=== PATIENT | male | born 1945 | race Caucasian/White ===

== ENCOUNTER → 2017-11-19 14:15 | Outpatient (CLI) | payer MEDICARE, SELFPAY ==
[2017-11-19 16:30] LABS: Hemoglobin A1c 6.6 % (4.2-6.3)
== END ==
PROVIDERS: Family Provider Family Medicine; PCP Family Medicine; Visit Provider Family Medicine
DX: E11.9 Type 2 diabetes mellitus without complications (principal)
CPT/HCPCS: 36415; 83036

== ENCOUNTER → 2018-02-10 13:54 | Outpatient (CLI) | payer MEDICARE, SELFPAY ==
[2018-02-10 15:01] LABS: Cholesterol 99 mg/dL (200); High Density Lipoprotein 57 mg/dL; Triglycerides 93 mg/dL; Very Low Density Lipoprotein 19 mg/dL (5-40)
[2018-02-10 15:03] LABS: Hemoglobin A1c 6.5 % (4.2-6.3)
== END ==
PROVIDERS: Family Provider Family Medicine; PCP Family Medicine; Visit Provider Family Medicine
DX: I51.9 Heart disease, unspecified (principal); E11.9 Type 2 diabetes mellitus without complications
CPT/HCPCS: 36415; 80061; 83036

== ENCOUNTER → 2018-05-14 13:58 | Outpatient (CLI) | payer MEDICARE, SELFPAY ==
[2018-05-14 16:37] LABS: Hemoglobin A1c 6.3 % (4.2-6.3)
== END ==
PROVIDERS: Family Provider Family Medicine; PCP Family Medicine; Referring Provider Family Medicine; Visit Provider Family Medicine
DX: E11.9 Type 2 diabetes mellitus without complications (principal)
CPT/HCPCS: 36415; 83036

== ENCOUNTER → 2018-10-08 05:58 | Outpatient (CLI) | payer MEDICARE, SELFPAY ==
[2018-09-24 10:12] VITALS: BMI 28.4
--- NOTE | 2018-10-08 06:04 | ECHOCS_ITS ---
Reason For Study: MURMUR Procedure This was a 2D Doppler, Color Flow transthoracic echocardiogram. Contrast injection was performed. Exam performed in department. Left Ventricle Normal LV size. Mild concentric left ventricular hypertrophy. Left ventricular systolic function is normal. The estimated ejection fraction is 55 %. Stage 2 diastolic dysfunction. Mid-Inferior: Hypokinetic. Right Ventricle Normal RV size. Normal systolic function. Atria The left atrium is moderately enlarged. Normal right atrium. Mitral Valve Normal mitral valve. Tricuspid Valve Normal tricuspid valve. Mild (1+) tricuspid valve insufficiency. Pulmonary artery systolic pressure is 44 mmHg. Aortic Valve Trisinus/trileaflet aortic valve. Moderate focal aortic valve calcification. Peak aortic valve gradient 33 mmHg. Mean aortic valve gradient 19 mmHg. Calculated aortic valve area (continuity equation) is 1.5 cm2. Pulmonic Valve Normal pulmonic valve. Great Vessels Normal aortic root. The pulmonary artery is normal size. Pericardium/Pleural No pericardial effusion. Medication Diluted definity 2.5ml given slow IV push to enhance endocardial definition. MMode/2D Measurements & Calculations LVIDd: 4.2 cm IVSd: 1.2 cm LVOT diam: 2.2 cm LVIDs: 3.0 cm LVPWd: 1.2 cm RVDd: 3.7 cm FS: 28.0 % LVOT area: 3.7 cm2 Ao root diam: 2.9 cm LAV(MOD-bp): 102.0 ml LA A4 area: 27.5 cm2 LAV(MOD-bp) Indexed: 50.3 ml/m2 LAV(MOD-sp2): 99.8 ml LAV(MOD-sp4): 102.6 ml LA dimension(2D): 4.5 cm RA A4 area: 19.2 cm2 Doppler Measurements & Calculations MV E max shamar: 106.1 cm/sec Lat Peak E' Shamar: 10.5 cm/sec Med Peak E' Shamar: 6.8 cm/sec MV A max shamar: 89.7 cm/sec E/E' lat: 10.1 E/E' med: 15.7 MV E/A: 1.2 Ao V2 max: 288.0 cm/sec AI max shamar: 288.8 cm/sec LV V1 max: 117.6 cm/sec Ao max P.2 mmHg AI max P.4 mmHg LV V1 max P.5 mmHg Ao V2 mean: 210.3 cm/sec AI dec slope: 185.3 cm/sec2 LV V1 mean P.5 mmHg Ao mean P.4 mmHg AI P1/2t: 456.7 msec LV V1 mean: 90.8 cm/sec Ao V2 VTI: 64.4 cm LV V1 VTI: 27.1 cm RENALDO(I,D): 1.5 cm2 RENALDO(V,D): 1.5 cm2 SV(LVOT): 99.0 ml PA V2 max: 130.0 cm/sec TR max shamar: 316.2 cm/sec TR max P.0 mmHg Interpretation Summary Normal LV size. Mild concentric left ventricular hypertrophy. Left ventricular systolic function is normal. The estimated ejection fraction is 55 %. Stage 2 diastolic dysfunction. Mean aortic valve gradient 19 mmHg. Calculated aortic valve area (continuity equation) is 1.5 cm2. Contrast injection was performed. Ordering Physician: Walt Baker Referring Physician: Estrada Martinez Performed By: Lorna Londono RDCS, RVT
--- NOTE | 2018-10-08 06:04 | CDU_ITS ---
Reason For Study: Carotid bruit Rt. Velocities/BP Lt. Velocities/BP Prox CCA 85.0/12.3 cm/sec. Prox CCA 117.0/14.7 cm/sec. Mid CCA 90.3/14.1 cm/sec. Mid CCA 97.3/14.1 cm/sec. Dist CCA 66.3/12.9 cm/sec. Dist CCA 69.8/10.6 cm/sec. Prox ICA 56.3/18.2 cm/sec. Prox ICA 101.0/21.1 cm/sec. Mid ICA 64.5/18.8 cm/sec. Mid ICA 77.4/19.4 cm/sec. Dist ICA 68.6/20.5 cm/sec. Dist ICA 65.3/16.0 cm/sec. Rt. ICA/CCA = .76. Lt. ICA/CCA = 1.0. Prox ECA 85.6/9.4 cm/sec. Prox ECA 123.0/10.2 cm/sec. Rt. Vert. 39.9/11.1 cm/sec. Lt. Vert. 45.9/11.1 cm/sec. Right Extracranial There is intimal thickening but no significant atherosclerotic plaque noted in the right common carotid artery. There is homogeneous, smooth atherosclerotic plaque noted in the right internal carotid artery. There is no significant atherosclerotic plaque noted in the right external carotid artery. Antegrade flow is noted in the right vertebral artery. Left Extracranial There is heterogeneous, irregular atherosclerotic plaque noted in the left common carotid artery. There is heterogeneous, irregular atherosclerotic plaque noted in the left internal carotid artery. There is heterogeneous, irregular atherosclerotic plaque noted in the left external carotid artery. Antegrade flow is noted in the left vertebral artery. Procedure Carotid Duplex 32201. Exam performed in department. Interpretation Summary Mild (<50%) stenosis right extracranial internal carotid. Mild (<50%) stenosis left extracranial internal carotid. Flow within the vertebral arteries is antegrade bilaterally. Ordering Physician: Walt Baker Referring Physician: Walt Baker Performed By: Katerine Montes RVT
--- NOTE | 2018-10-08 08:32 | RAD_ITS ---
STUDY: X-RAY CHEST REASON FOR EXAM: Male, 73 years old. Abnormal stress test today. TECHNIQUE: PA and lateral views. COMPARISON: None. FINDINGS: Median sternotomy has from prior CABG procedure. The lungs are clear and expanded. There is no demonstrated pleural abnormality. Normal size heart. Normal mediastinum and ernestine. Normal visualized pulmonary arteries. Normal visualized aortic arch and descending thoracic aorta. Diffuse idiopathic skeletal hyperostosis along the thoracic spine. Anterior and lateral marginal spurring along the thoracic spine. Normal visualized ribs, clavicles, and shoulders. There is no demonstrated abnormality of the visualized soft tissue structures of the upper abdomen. RAD/Chest PA and Lateral IMPRESSION: Normal x-ray examination of the chest. Electronically Signed: Den Hurd MD at 12:06 EDT , Service support ,
--- NOTE | 2018-10-08 08:56 | STRESSREP ---
Stress Test Report Exercise myocardial perfusion stress test. 73-year-old man with a history of coronary artery disease status post coronary artery bypass surgery. Medications: Aspirin, lisinopril, atorvastatin, metformin, metoprolol, isosorbide. Stress protocol: Resting EKG demonstrates normal sinus rhythm with a rate of 68 bpm no intervals noted resting blood pressure 148/78 mmHg. The patient exercised according to regular Calvin protocol for a total duration of 5 minutes and 22 seconds. The maximum heart rate attained was 142 bpm which was 95% of maximum predicted heart rate the maximum workload was 7 metabolic equivalents. At rest there were nonspecific ST-T wave changes noted with normally the criteria for ischemia. At peak exercise there was approximately 2.[address] depression noted in leads II, III and aVF and 1.[address] depression noted in V4 and V6. The above is suggestive of ischemia. No chest pain was noted shortness of breath was present. The resting blood pressure was 148/78 mmHg with a peak blood pressure 180/88 mmHg. Myocardial perfusion protocol. 10.7 mCi of technetium 99m sestamibi was injected at rest. Patient exercised according to regular Calvin protocol for 5 minutes and 22 seconds. Peak exercise 33.2 mCi of technetium 99m sestamibi was injected stress images were obtained stress and rest images were reconstructed and compared in the short axis vertical long horizontal long axis. Gated images were also obtained Perfusion SPECT analysis Review of the images demonstrate a large defect noted in the mid anterior wall extending to the apex on the stress images with near complete reversibility noted during the resting images. The above is suggestive of a large area of anterior and anterolateral ischemia present. No previous infarct is noted. Gated SPECT analysis: The gated ejection fraction is noted to be 53% with mild antral lateral hypokinesis. Conclusion: Abnormal myocardial perfusion stress test with evidence of anterior and anterolateral ischemia at a moderate workload. Preserved ejection fraction.
[2018-10-08 09:06] LABS: Hematocrit 46.6 % (40-54); Hemoglobin 15.1 g/dl (13.0-16.5); Mean Corp Hgb Conc 32.4 g/gl (32-36); Mean Corpuscular Hgb 31.7 pg (27.0-32.0); Mean Corpuscular Volume 97.7 fL (80-94); Platelet Count 82 K/mm3 (150-450); RBC Distribution Width CV 13.2 % (11.6-14.6); RBC Distribution Width SD 47.1 fl (35.1-43.9); Red Blood Count 4.77 M/mm3 (4.6-6.2); White Blood Count 6.7 K/mm3 (4.4-11.0)
[2018-10-08 09:08] LABS: Scan Indicated on CBC? Y/N NO
[2018-10-08 09:31] LABS: ALB/GLOB Ratio 1.4 RATIO (0.9-2.4); AST(SGOT) 34 U/L (15-37); Alanine Aminotransfer ALT/SGPT 29 U/L (16-61); Albumin, Serum 4.1 g/dL (3.2-5.0); Alkaline Phosphatase 58 U/L (45-117); Anion Gap 7 (5-15); BUN 16 mg/dL (7-18); Calcium,Total 8.8 mg/dL (8.5-10.1); Chloride 107 mmol/L (98-107); EST Glomerular Filtration Rate 78 mL/min (>60); Est Glom Filt Rate - Afr Amer 95 mL/min (>60); Glucose 149 mg/dL (74-106); Potassium 4.4 mmol/L (3.5-5.1); Protein, Total 7.1 g/dL (6.4-8.2); Sodium Level 138 mmol/L (136-145)
== END ==
PROVIDERS: Family Provider Family Medicine; PCP Family Medicine; Referring Provider Internal Medicine Cardiovascular Disease; Visit Provider Internal Medicine Cardiovascular Disease
DX: R09.89 Other specified symptoms and signs involving the circulatory and respiratory systems (principal); I35.1 Nonrheumatic aortic (valve) insufficiency; R06.02 Shortness of breath; R94.39 Abnormal result of other cardiovascular function study
CPT/HCPCS: 36415; 71046; 78452; 80053; 85027; 93017; 93306; 93880; A9500; Q9957; A4216; C8929

== ENCOUNTER 2018-10-09 07:06 | Day surgery (SDC) | payer MEDICARE, SELFPAY ==
[2018-09-24 10:12] VITALS: BMI 28.4
[2018-10-08 13:00] VITALS: BMI 28.4
--- NOTE | 2018-10-09 13:06 | CL.D_ITS ---
Patient Name: JOHN AGUILLON Study Date: 10/09/2018 Performing: Eugene Ayala MD Ht: 68 inches 173 cm : 1945 Wt: 187.6 lbs 85 kg Age: 73 Gender: male BSA: 1.99 PROCEDURE(S) PERFORMED [id number]-XOF/COR/CABG DC11-AO ROOT ANGIO WITH HEART CATH CLINICAL PROFILE AND INDICATIONS Indications: Suspected CAD Heart Failure: None Stress/Imaging Date: 10/08/2018Stress Test with SPECT MPI: Positive High Risk CAD Presentations: No Sxs, no angina. CONCLUSIONS Coronary artery disease involving the [place] vessels which is severe with patent bypass grafts to the right coronary artery, left anterior descending artery, and circumflex artery. The distal left ante rior descending artery has diffuse disease noted. RECOMMENDATIONS Medical therapy DESCRIPTION OF PROCEDURE The patient arrived to the procedure lab. The risks and benefits of the procedure as well as a full d escription of our services here and current unavailability of surgical backup were fully explained to the patient and/or their significant other prior to the catheterization. The Timeout was completed, verifying the correct patient and procedure. The patient's procedural site was prepped and draped in the usual fashion. Local anesthetic was given subcutaneously to right groin region with Lidocaine 2%. Using a modified Seldinger technique, arterial access was obtained via the right femoral artery, a 5 Fr sheath was inserted. Left Coronary Artery selective angiography was performed in multiple views u sing a 5 Fr. JL4 catheter. Right Coronary Artery selective angiography was then performed in multiple views using a 5 Fr. 3DRC (Bernabe) catheter. Right internal mammary artery graft to the RCA selecti ve angiography was performed in multiple views using a 5 Fr. 3DRC (Bernabe) catheter. Left internal mammary artery graft to the LAD selective angiography was performed in multiple views u sing a 5 Fr. 3DRC (Bernabe) catheter. Saphenous Vein graft to the DIAG 1 selective angiography was p erformed in multiple views using a 5 Fr. JR 4 catheter. Ascending (root) aorta selective angiography was then performed in single view using a pigtail catheter. Ascending (root) aorta selective angiogra phy was then performed in single view using a pigtail catheter.Contrast was injected through the farley th and the Right Iliac and Femoral artery were assessed for possible closure device.The arterial farley th was pulled and a Mynx closure device was deployed for hemostasis CORONARY ANGIOGRAPHY DOMINANCE: Right Dominant LEFT HEART ASSESSMENT Left Ventricular Ejection Fraction: by Echo 55 % LEFT MAIN: Severe proximal and distal stenosis LEFT ANTERIOR DECENDING ARTERY: is occluded DISTAL LAD: Diffusely diseased up to 65 % CIRCUMFLEX ARTERY: MID CIRC: is occluded RIGHT CORONARY ARTERY: PROX RCA: is occluded GRAFTS: JENNIFER graft to the Distal RCA is patent CINTRON graft to the Distal LAD is patent Saphenous Vein graft to the CIRC is patent VALVE FINDINGS: Aortic Valve Stenosis - moderate COMPLICATIONS No Complications PROCEDURE MEDICATIONS Versed 1 mg IV Oxygen: 2 L/min via nasal cannula SUMMARY OF HEMODYNAMIC DATA Time AIR REST ECG 07:22:34 AO 107/56 (78) SA 08:55:07 RM AIR REST 09:41:57 Signed By Eugene Ayala MD On 10/09/2018 1:05:45 PM Eugene Ayala MD
== END 2018-10-09 12:40 | disposition home or self-care (01) ==
PROVIDERS: Family Provider Family Medicine; PCP Family Medicine; Referring Provider Internal Medicine Cardiovascular Disease; Visit Provider Internal Medicine Cardiovascular Disease
DX: I25.10 Atherosclerotic heart disease of native coronary artery without angina pectoris (principal); Z95.1 Presence of aortocoronary bypass graft; I35.0 Nonrheumatic aortic (valve) stenosis; I35.1 Nonrheumatic aortic (valve) insufficiency; I34.0 Nonrheumatic mitral (valve) insufficiency; R09.89 Other specified symptoms and signs involving the circulatory and respiratory systems; E78.00 Pure hypercholesterolemia, unspecified; I10 Essential (primary) hypertension; I73.9 Peripheral vascular disease, unspecified; E11.9 Type 2 diabetes mellitus without complications; Z87.891 Personal history of nicotine dependence; Z79.82 Long term (current) use of aspirin; Z79.84 Long term (current) use of oral hypoglycemic drugs; Z79.899 Other long term (current) drug therapy
CPT/HCPCS: 93459; 93567; 99152; 99153; C1760; J7040; C1769; Q9967

== ENCOUNTER → 2019-02-24 | Outpatient (CLI) | payer MEDICARE, SELFPAY ==
[2019-02-24 13:14] VITALS: BMI 27.5
--- NOTE | 2019-02-24 14:20 | LES_PTH ---
PATIENT: JOHN AGUILLON LOC: [facility] U#:[id number] AGE/SX: 74/M ROOM: RE02/24/[address]: Dr. 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 Negative for malignancy. SJ:kinsey 02/26/19 COMMENT Clinical correlation and appropriate follow up are necessary. Complete excision of the lesion is suggested if clinically indicated. Case has been reviewed in consultation with Dr. Portillo who concurs with the above diagnosis. IDC:AM MICROSCOPIC DESCRIPTION Slides are reviewed. GROSS DESCRIPTION Received is one container labeled with the patient's name and not further designated. The specimen consists of a round biopsy of eagle-white skin measuring 0.6 cm in diameter and 0.5 cm in length. The specimen is inked, bisected and submitted entirely in one cassette. / SJ:kinsey 02/25/19 TC:1 CPT: 71852
== END | disposition home or self-care (01) ==
PROVIDERS: Family Provider Family Medicine; PCP Family Medicine; Visit Provider Family Medicine
DX: L85.8 Other specified epidermal thickening (principal)
CPT/HCPCS: 88305

== ENCOUNTER → 2019-03-11 | Outpatient (CLI) | payer MEDICARE, SELFPAY ==
[2019-03-10 11:55] VITALS: BMI 27.8
[2019-03-11 09:28] LABS: AST(SGOT) 18 U/L (15-37); Alanine Aminotransfer ALT/SGPT 22 U/L (16-61); Albumin, Serum 3.7 g/dL (3.2-5.0); Alkaline Phosphatase 49 U/L (45-117); Bilirubin, Direct 0.41 mg/dL (0.00-0.30); Cholesterol 132 mg/dL (200); Globulin 3.1 g/dL (2.2-4.2); High Density Lipoprotein 69 mg/dL; Protein, Total 6.8 g/dL (6.4-8.2); Triglycerides 162 mg/dL; Very Low Density Lipoprotein 32 mg/dL (5-40)
== END | disposition home or self-care (01) ==
LOC: LAB 08:41
PROVIDERS: Family Provider Family Medicine; PCP Family Medicine; Referring Provider Internal Medicine Cardiovascular Disease; Visit Provider Internal Medicine Cardiovascular Disease
DX: E78.00 Pure hypercholesterolemia, unspecified (principal)
CPT/HCPCS: 36415; 80061; 80076

== ENCOUNTER → 2019-08-23 | Outpatient (CLI) | payer MEDICARE, SELFPAY ==
[2019-05-26 13:28] VITALS: BMI 27.8
[2019-08-23 12:57] LABS: ALB/GLOB Ratio 1.2 RATIO (0.9-2.4); AST(SGOT) 20 U/L (15-37); Alanine Aminotransfer ALT/SGPT 29 U/L (16-61); Albumin, Serum 3.8 g/dL (3.2-5.0); Alkaline Phosphatase 44 U/L (45-117); Anion Gap 6 (5-15); BUN 22 mg/dL (7-18); BUN/Creat Ratio 19.5 RATIO (10-20); Calcium,Total 9.1 mg/dL (8.5-10.1); Chloride 109 mmol/L (98-107); Cholesterol 152 mg/dL (200); Creatinine, Serum 1.13 mg/dL (0.70-1.30); EST Glomerular Filtration Rate 68 mL/min (>60); Est Glom Filt Rate - Afr Amer 82 mL/min (>60); Globulin 3.2 g/dL (2.2-4.2); Glucose 166 mg/dL (74-106); High Density Lipoprotein 61 mg/dL; Potassium 4.3 mmol/L (3.5-5.1); Sodium Level 141 mmol/L (136-145); Triglycerides 186 mg/dL; Very Low Density Lipoprotein 37 mg/dL (5-40)
[2019-08-23 13:26] LABS: Microalbumin,Random Urine 8.5 mg/L (NO RANGE EST.); Microalbumin:Creatinine Ratio 4.2 mg/g CRE (<30 mg/g CRE)
== END | disposition home or self-care (01) ==
LOC: BIMLAB 08:05
PROVIDERS: PCP Family Medicine; Referring Provider Family Medicine; Visit Provider Family Medicine
DX: E11.9 Type 2 diabetes mellitus without complications (principal); E78.00 Pure hypercholesterolemia, unspecified
CPT/HCPCS: 36415; 80053; 80061; 82043; 82570

== ENCOUNTER → 2020-05-23 10:56 | Outpatient (CLI) | payer MEDICARE, SELFPAY ==
[2020-02-09 08:59] VITALS: BMI 28.7
== END ==
PROVIDERS: PCP Family Medicine; Visit Provider Nurse Practitioner Family
DX: Z20.828 Contact with and (suspected) exposure to other viral communicable diseases (principal)
CPT/HCPCS: 87635; C9803; U0003

== ENCOUNTER → 2020-07-18 09:23 | Outpatient (CLI) | payer MEDICARE, SELFPAY ==
[2020-07-07 14:54] VITALS: BMI 26.5
--- NOTE | 2020-07-18 09:25 | ECHOD_ITS ---
Reason For Study: MURMUR Procedure This was a 2D Doppler, Color Flow transthoracic echocardiogram. The study was technically difficult. Contrast injection was performed. Exam performed in department. Left Ventricle Normal LV size. Mild concentric left ventricular hypertrophy. Left ventricular systolic function is normal. The estimated ejection fraction is 55 %. Diastolic function is indeterminate. No regional wall motion abnormalities noted. Right Ventricle Normal RV size. Normal systolic function. Atria The left atrium is mildly enlarged. Normal right atrium. No doppler evidence for ASD. Mitral Valve There is mild mitral annular calcification. Extension of the mitral annular calcification onto the mitral valve leaflet. Trivial mitral valve insufficiency. Tricuspid Valve Normal tricuspid valve. Mild tricuspid valve insufficiency. Right ventricular systolic pressure estimated to be 22 mmHg. Aortic Valve Trisinus/trileaflet aortic valve. Severe focal aortic valve calcification. Moderate aortic stenosis. Mild (1+) aortic valve insufficiency. Pulmonic Valve The pulmonic valve is not well visualized. Great Vessels The aortic root is not well visualized. Pericardium/Pleural No pericardial effusion. MMode/2D Measurements & Calculations LVIDd: 4.1 cm IVSd: 1.4 cm LVOT diam: 1.9 cm LVIDs: 2.8 cm LVPWd: 1.4 cm LVOT area: 2.7 cm2 RVDd: 3.8 cm FS: 31.4 % LAV(MOD-bp): 62.0 ml LA A4 area: 20.7 cm2 LA dimension(2D): 4.3 cm LAV(MOD-bp) Indexed: 32.2 ml/m2 LAV(MOD-sp2): 63.3 ml LAV(MOD-sp4): 58.1 ml RA A4 area: 18.6 cm2 Time Measurements MV dec time: 0.29 sec Doppler Measurements & Calculations MV E max shamar: 74.8 cm/sec Lat Peak E' Shamar: 9.7 cm/sec Med Peak E' Shamar: 5.4 cm/sec MV A max shamar: 84.6 cm/sec E/E' lat: 7.7 E/E' med: 14.0 MV E/A: 0.88 Ao V2 max: 281.3 cm/sec AI max shamar: 333.7 cm/sec LV V1 max: 112.0 cm/sec Ao max P.7 mmHg AI max P.0 mmHg LV V1 max P.0 mmHg Ao V2 mean: 214.3 cm/sec AI dec slope: 193.4 cm/sec2 LV V1 mean P.1 mmHg Ao mean P.7 mmHg AI P1/2t: 505.3 msec LV V1 mean: 84.7 cm/sec Ao V2 VTI: 67.0 cm LV V1 VTI: 27.7 cm RENALDO(I,D): 1.1 cm2 RENALDO(V,D): 1.1 cm2 SV(LVOT): 75.5 ml PA V2 max: 103.3 cm/sec TR max shamar: 215.7 cm/sec TR max P.6 mmHg Interpretation Summary The study was technically difficult. Contrast injection was performed. Left ventricular systolic function is normal. The estimated ejection fraction is 55 %. Mild concentric left ventricular hypertrophy. The left atrium is mildly enlarged. There is mild mitral annular calcification. Extension of the mitral annular calcification onto the mitral valve leaflet. Trivial mitral valve insufficiency. Mild tricuspid valve insufficiency. Moderate aortic stenosis. Mild (1+) aortic valve insufficiency. Right ventricular systolic pressure estimated to be 22 mmHg. Diastolic function is indeterminate. Ordering Physician: Walt Baker Referring Physician: Estrada Martinez Performed By: Lorna Londono, RDCS, RVT
== END ==
PROVIDERS: PCP Family Medicine; Referring Provider Internal Medicine Cardiovascular Disease; Visit Provider Internal Medicine Cardiovascular Disease
DX: I34.0 Nonrheumatic mitral (valve) insufficiency (principal); I35.0 Nonrheumatic aortic (valve) stenosis; I35.1 Nonrheumatic aortic (valve) insufficiency; I25.10 Atherosclerotic heart disease of native coronary artery without angina pectoris; E78.00 Pure hypercholesterolemia, unspecified; I10 Essential (primary) hypertension; Z95.1 Presence of aortocoronary bypass graft
CPT/HCPCS: 93306; Q9957; A4216; C8929

== ENCOUNTER → 2020-08-09 14:37 | Outpatient (CLI) | payer MEDICARE, SELFPAY ==
[2020-08-09 14:03] VITALS: BMI 26.7
[2020-08-09 18:34] LABS: ALB/GLOB Ratio 1.3 RATIO (0.9-2.4); AST(SGOT) 23 U/L (15-37); Alanine Aminotransfer ALT/SGPT 29 U/L (16-61); Albumin, Serum 4.2 g/dL (3.2-5.0); Alkaline Phosphatase 54 U/L (45-117); Anion Gap 8 (5-15); BUN 26 mg/dL (7-18); BUN/Creat Ratio 21.8 RATIO (10-20); Calcium,Total 9.1 mg/dL (8.5-10.1); Chloride 104 mmol/L (98-107); Cholesterol 130 mg/dL (200); Creatinine, Serum 1.19 mg/dL (0.70-1.30); EST Glomerular Filtration Rate 64 mL/min (>60); Est Glom Filt Rate - Afr Amer 77 mL/min (>60); Globulin 3.2 g/dL (2.2-4.2); Glucose 75 mg/dL (74-106); High Density Lipoprotein 64 mg/dL; Potassium 4.2 mmol/L (3.5-5.1); Protein, Total 7.4 g/dL (6.4-8.2); Sodium Level 138 mmol/L (136-145); Triglycerides 167 mg/dL; Very Low Density Lipoprotein 33 mg/dL (5-40)
== END ==
PROVIDERS: PCP Family Medicine; Visit Provider Family Medicine
DX: I10 Essential (primary) hypertension (principal); E11.9 Type 2 diabetes mellitus without complications; Z79.4 Long term (current) use of insulin
CPT/HCPCS: 36415; 80053; 80061